=== PATIENT | male | born 1950 | race Caucasian/White ===

== ENCOUNTER 2016-11-23 14:28 | Emergency (ER) | payer BC ==
[~2016-11-23 14:28] MED LIST: CARDIZEM90 MG PO; COMPAZINE10 MG PO; DEXAMETHASONE4 MG PO; FOLVITE-DPS1 MG PO; LOPRESSOR DPS50 MG PO; PRILOSEC40 MG PO; ROXICODONE5 MG/5 ML PO; ZOCOR DPS40 MG PO; ZOFRAN8 MG PO
--- NOTE | 2016-11-24 12:15 | ER ---
ADMIT: 11/23/2016 RM/LOC: ER [facility] MR#: [id number] [address] ADRIEN MEREDITH [address] [place] [address] Emergency Room Report SEX: M AGE: 66 : 1950 DATE: 11/23/2016 This 66-year-old, comes to the Emergency Department with shortness of breath times past several hours. It was rather sudden onset. He has been in this hospital before with similar complaints. 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 See T-sheet for history and physical. He appears very anxious. He is saturating at 98%-100% on room air. He is tachypneic. CBC; white count of 10.8, hemoglobin 7.9. Electrolytes were significant for glucose of 116. CTA of the chest, there was a large mass at tip of trachea. RT later came down, suctioned down a very large mucus plug. He reported dramatic improvement in his symptoms. His diagnosis is shortness of breath secondary to a mucus plug and anemia. A humidifier was arranged for this coming week through [facility] for his trach. He was instructed to follow up with his primary doctor on Saturday. DIAGNOSIS: Shortness of breath secondary to mucus plug. Joe Young MD/ harrison JOB #: [id number] CC: Joe Young MD, Attending Physician
== END 2016-11-23 17:30 | disposition home or self-care (01) ==
LOC: ER 14:28
DX: R06.02 Shortness of breath (principal); Z85.46 Personal history of malignant neoplasm of prostate; Z88.8 Allergy status to other drugs, medicaments and biological substances; Z79.01 Long term (current) use of anticoagulants; Z79.899 Other long term (current) drug therapy

== ENCOUNTER 2017-01-24 18:05 | Emergency (ER) | payer MEDICARE, OTHER ==
--- NOTE | 2017-01-25 16:19 | ER ---
ADMIT: 01/24/2017 RM/LOC: ER [facility] MR#: [id number] [address] ADRIEN MEREDITH [address] [place] [address] Emergency Room Report SEX: M AGE: 67 : 1950 DATE: 01/24/2017 ADDENDUM: Please see my T-sheet for complete review of systems, past medical history, and physical exam. CHIEF COMPLAINT: Difficulty breathing. HISTORY OF PRESENT ILLNESS: This is a pleasant 67-year-old male with past medical history significant for metastatic laryngeal cancer, who presents with shortness of breath, difficulty breathing. The patient does have a tracheostomy and is concerned he could have some mucus plugging. He is in a moderate amount of respiratory distress, exacerbated by lying flat. He admits to some lightheadedness. He does use at home suctioning and states he has been unable to clear his airway and is having increasing difficulty breathing. COURSE IN THE EMERGENCY ROOM: The patient was seen and examined. He is in a moderate amount of respiratory distress. He has had decreased air movement, left greater than right, with some rhonchi in the right lung base. He speaks in 3-4 word sentences. Heart is regular rate. No murmur, gallop, or rub. Abdomen is soft. Skin is slightly diaphoretic secondary to work of breathing. He is using accessary muscles. I did call [facility] to try some suctioning. They did use some sterile water and suctioning and they were able to clear some mucus from his airway. He feels much more comfortable. I did get a chest x-ray. It was negative for any acute disease. He does have some chronic changes secondary to his underlying comorbidities. IMPRESSION: 1. Shortness of breath. 2. Likely mucus plugging. DISPOSITION: The patient was discharged to follow up with his primary care or filler block inserter remover as needed. Continue to use the at home suctioning. Continue all of his home medications. Return with any worsening signs or symptoms. Questions were sought and answered to the best of my ability and to the patient's satisfaction. Discharged in stable condition. MARY Hunter / Shaun Espinoza MD / harrison JOB #: [id number] CC: Shaun Espinoza MD, Attending Physician Carmine Carter MD, Family Physician
== END 2017-01-24 20:00 | disposition home or self-care (01) ==
LOC: ER 18:05
DX: R06.02 Shortness of breath (principal); I10 Essential (primary) hypertension; Z90.49 Acquired absence of other specified parts of digestive tract; Z87.891 Personal history of nicotine dependence

== ENCOUNTER 2017-02-10 01:04 | Emergency (ER) | payer MEDICARE, OTHER ==
--- NOTE | 2017-02-10 19:20 | ER ---
ADMIT: 02/10/2017 RM/LOC: ER [facility] MR#: [id number] [facility] [address] ADRIEN MEREDITH [address] [place] [address] Emergency Room Report SEX: M AGE: 67 : 1950 DATE: 02/10/2017 Patient is a 67-year-old male with laryngeal cancer, status post laryngectomy, trach, PEG tube, presented with respiratory distress past 2 hours. The patient was given DuoNeb aerosol x3 over trach with improvement. Difficult IV stick. Unable to obtain IV for Solu-Medrol or magnesium. Given 60 of prednisone in department. Home with 60 mg taper over 14 days. Doxycycline 200 mg load, 100 mg b.i.d. x10 days. Home with home nebulizer setup with DuoNeb q.i.d. p.r.n. Kwame Riley MD/ harrison JOB #: [id number] CC: Kwame Riley MD, Attending Physician Carmine Carter MD, Family Physician Carmine Carter MD
== END 2017-02-10 03:50 | disposition home or self-care (01) ==
LOC: ER 01:04
DX: J44.1 Chronic obstructive pulmonary disease with (acute) exacerbation (principal); I10 Essential (primary) hypertension; Z90.49 Acquired absence of other specified parts of digestive tract; Z85.46 Personal history of malignant neoplasm of prostate; Z90.79 Acquired absence of other genital organ(s); Z90.89 Acquired absence of other organs; Z93.1 Gastrostomy status; Z88.7 Allergy status to serum and vaccine; Z79.01 Long term (current) use of anticoagulants; Z79.899 Other long term (current) drug therapy